=== PATIENT | female | born 1995 | race Caucasian/White ===

== ENCOUNTER 2024-09-19 00:19 | Emergency (ER) | payer SELFPAY ==
[~2024-09-19] VITALS: Ht 165.1 cm; Wt 60.3 kg
[2024-09-19] MEDS ORDERED: diphenhydrAMINE 50 MG/1 ML VIAL ONE (06:02)
[2024-09-19] MEDS ORDERED: MORPHINE SULFATE 4 MG/1 ML DISP.SYRIN ONE (06:02)
[2024-09-19] MEDS: diphenhydrAMINE 50 MG/1 ML VIAL IM ONE (06:05)
[2024-09-19] MEDS: MORPHINE SULFATE 4 MG/1 ML DISP.SYRIN IM ONE (06:05)
[2024-09-19] MEDS: IV NORMAL SALINE 1000 ML BAG IV ONE (06:10)
[2024-09-19 09:33] LABS: BASOPHILS % (AUTO) 0.5 % (0.0-2.0); EOSINOPHILS # (AUTO) 0.2 K/uL (0.0-0.7); EOSINOPHILS % (AUTO) 2.9 % (0.0-7.0); HEMATOCRIT 33.6 % (31.2-41.9); HEMOGLOBIN 11.9 g/dL (10.9-14.3); LYMPHOCYTES # (AUTO) 2.2 K/uL (0.8-4.8); LYMPHOCYTES % (AUTO) 39.7 % (20.5-51.5); MEAN CORPUSCULAR HEMOGLOBIN 33.5 uug (24.7-32.8); MEAN CORPUSCULAR HGB CONC 36 g/dL (32.3-35.6); MEAN CORPUSCULAR VOLUME 94.5 fL (75.5-95.3); MONOCYTES # (AUTO) 0.3 K/uL (0.1-1.30); MONOCYTES % (AUTO) 5.3 % (0.0-11.0); NEUTROPHILS # (AUTO) 2.8 K/uL (1.8-8.9); NEUTROPHILS % (AUTO) 51.6 % (38.5-71.5); PLATELET COUNT (AUTO) 238 K/uL (179-408); RED BLOOD CELL COUNT(AUTO) 3.55 MIL/uL (3.63-4.92); WHITE BLOOD COUNT (AUTO) 5.5 K/uL (3.8-11.8)
[2024-09-19 09:39] LABS: DIFFERENTIAL COMMENT 1
[2024-09-19 09:52] LABS: LIPASE 35 U/L (16-77)
[2024-09-19 10:07] LABS: ALBUMIN 3.6 g/dL (3.4-5.0); BILIRUBIN,DIRECT 0.1 mg/dL (0.0-0.2); BILIRUBIN,TOTAL 0.4 mg/dL (0.2-1.0); CREATININE 0.6 mg/dL (0.6-1.3); POTASSIUM 3.8 mmol/L (3.5-5.1); TOTAL PROTEIN, SERUM 6.5 g/dL (6.4-8.2)
[2024-09-19 10:19] LABS: PREGNANCY TEST SERUM QUAN < 1 miul/L (0-6)
[2024-09-19 11:39] VITALS: BP 120/68; O2SAT 98
== END 2024-09-19 11:41 | disposition home or self-care (01) ==
LOC: ER 00:23
DX: R11.2 Nausea with vomiting, unspecified (principal); R19.7 Diarrhea, unspecified; R42 Dizziness and giddiness; R53.1 Weakness; R10.2 Pelvic and perineal pain
CPT/HCPCS: 99284; 96360; 80076; 80048; 83880; 83690; 85025; 84702; 36415; 96372; J1200; J2270; J7040 ×2; A4606; A4663